=== PATIENT | female | born 1945 | race Caucasian/White ===

== ENCOUNTER → 2020-05-25 | Outpatient (CLI) | payer OTHER | LOC: KOH-I 12:05 | DX: M51.36 Other intervertebral disc degeneration, lumbar region (principal) | CPT/HCPCS: 72110 ==

== ENCOUNTER → 2020-09-09 | Outpatient (CLI) | payer OTHER | LOC: RT 11:09 | DX: I10 Essential (primary) hypertension (principal) | CPT/HCPCS: 93005 ==

== ENCOUNTER → 2021-11-16 | Outpatient (CLI) | payer OTHER | LOC: CT 10:00 | DX: R10.2 Pelvic and perineal pain (principal); N28.1 Cyst of kidney, acquired; R10.31 Right lower quadrant pain; M54.59 Other low back pain; M79.605 Pain in left leg; M47.817 Spondylosis without myelopathy or radiculopathy, lumbosacral region; M51.37 Other intervertebral disc degeneration, lumbosacral region | CPT/HCPCS: 72131; Q9967 ==